=== PATIENT | female | born 1990 | race Caucasian/White ===

== ENCOUNTER → 2016-11-03 13:16 | Outpatient (CLI) | payer BC | END | disposition home or self-care (01) | LOC: D.MRI 13:16 | DX: M54.5 Low back pain (principal); G89.29 Other chronic pain ==

== ENCOUNTER → 2016-11-17 10:28 | Outpatient (CLI) | payer BC ==
[2016-11-17 14:22] LABS: HCG URINE NEGATIVE (NEGATIVE)
== END | disposition home or self-care (01) ==
LOC: D.RAD 10:28
PROVIDERS: Neurological Surgery
DX: M54.5 Low back pain (principal); M43.17 Spondylolisthesis, lumbosacral region

== ENCOUNTER 2017-03-23 18:15 | Emergency (ER) | payer BC | END 2017-03-23 21:55 | disposition home or self-care (01) | LOC: D.ER 18:15 | DX: M54.5 Low back pain (principal); V43.62XA Car passenger injured in collision with other type car in traffic accident, initial encounter; Y93.89 Activity, other specified; Y92.410 Unspecified street and highway as the place of occurrence of the external cause; E11.9 Type 2 diabetes mellitus without complications ==

== ENCOUNTER 2017-10-31 16:38 | Emergency (ER) | payer MEDICAID | END 2017-10-31 18:20 | disposition home or self-care (01) | LOC: D.ER 16:38 | DX: M54.5 Low back pain (principal); S39.012A Strain of muscle, fascia and tendon of lower back, initial encounter; X58.XXXA Exposure to other specified factors, initial encounter; Y93.89 Activity, other specified; Y92.89 Other specified places as the place of occurrence of the external cause; E11.9 Type 2 diabetes mellitus without complications ==

== ENCOUNTER 2018-09-14 05:46 | Day surgery (SDC) | payer MEDICAID ==
[~2018-09-14] VITALS: Ht 157.5 cm; Wt 143.2 kg
[2018-09-14 06:05] LABS: HEMATOCRIT 40.7 % (36.0-48.0); HEMOGLOBIN 13.6 g/dL (12-16); MCH 28.5 pg (26.0-34.0); MCHC 33.4 g/dL (31.0-37.0); MCV 85.1 fL (80.0-100.0); MEAN PLATELET VOLUME 9.1 fL (7.4-10.4); RBC 4.78 10x6/uL (4.00-5.40); RDW 13.5 % (11.5-14.5); WBC 12.8 10x3/uL (4.8-10.8)
[2018-09-14 06:13] LABS: CALC OSMOLALITY 280 mosm/kg (275-300); CALCIUM 8.4 mg/dL (8.5-10.1); CARBON DIOXIDE 27.1 mmol/L (21.0-32.0); CHLORIDE - SERUM 103 mmol/L (98-107); CREATININE - SERUM 0.8 mg/dL (0.6-1.3); GLUCOSE 102 mg/dL (74-106); POTASSIUM - SERUM 3.5 mmol/L (3.5-5.1); SODIUM 140 mmol/L (136-145); UREA NITROGEN 17 mg/dL (7-18); eGFR NON AFRICAN AMERICAN 90 mL/min (90-120)
[2018-09-14] MEDS ORDERED: HYDROCHLOROTHIA25 MG PO (06:22)
[2018-09-14] MEDS ORDERED: METOPROLOL TART50 MG PO (06:22)
[2018-09-14] MEDS ORDERED: BUSPAR10 MG PO (06:23)
[2018-09-14] MEDS ORDERED: BUPROPION XL300 MG PO (06:23)
[2018-09-14] MEDS ORDERED: MOBIC7.5 MG PO (06:23)
[2018-09-14] MEDS ORDERED: TYLENOL #4 W/CO1 TAB PO (06:24)
[2018-09-14] MEDS ORDERED: BACLOFEN20 M1 PO (06:24)
[2018-09-14] MEDS ORDERED: STRATTERA40 MG PO (06:25)
[2018-09-14 06:31] VITALS: BP 143/86; Ht 157.5 cm; Wt 143.2 kg
[2018-09-14 06:35] LABS: HCG URINE NEGATIVE (NEGATIVE)
--- NOTE | 2018-09-14 08:37 | NUR ---
DC INSTRUCTIONS GIVEN TO PT. STATES UNDERSTANDING. DC'D IV CATH FULLY INTACT
--- NOTE | 2018-09-14 09:11 | NUR ---
PT REQUESTED TO AMBULATE FROM UNIT. I WALKED W/ PT FROM HER ROOM TO THE [facility] WHERE HER BOYFRIEND WAS WAITING. PT LEFT UNIT AT 0908
--- NOTE | 2018-09-14 14:22 | OP ---
PATIENT NAME: NAMESAMARIA MEDICAL RECORD: [id number] :90 LOCATION:[facility] ADMISSION DATE: SURGEON: AVILA TOSCANO DO DATE OF OPERATION: 09/14/2018 PROCEDURE: EGD with biopsies. INDICATIONS FOR PROCEDURE: GERD, abdominal pain in the epigastric region, and diarrhea. SCOPE: Olympus video gastroscope. MEDICATIONS: Propofol 300 mg IV per anesthesia. ESTIMATED BLOOD LOSS: Minimal. COMPLICATIONS: None. FINDINGS: Informed consent was given. The patient was made comfortable with the above medication. After reaching an adequate level of sedation by slow IV push, the patient was placed on her left side. The endoscope was advanced under direct visualization through the mouth to the third portion of the duodenum. The entire esophagus appeared normal. At the GE junction, there was evidence of LA class A reflux-induced esophagitis. The endoscope was advanced beyond the GE junction into the stomach and retroflexed to view the cardia and fundus, which appeared relatively normal. Throughout the fundus, body of the stomach, and antrum and prepyloric regions, there were patchy areas of erythema and granularity consistent with possible gastritis. Cold forceps, biopsies were taken randomly to submit for histopathology and to rule out the presence of H. pylori. The endoscope was advanced beyond the pylorus into the duodenum. The duodenal bulb and second portion of the duodenum appeared normal. In the third portion of the duodenum, there were some erythema and granularity and a small ulceration present. Cold forceps, biopsies were taken specifically from this side as well as randomly throughout the bulb and second portion of the duodenum. The endoscope was withdrawn from the patient. The patient tolerated the procedure well and there were no complications. IMPRESSION: 1. LA class A reflux-induced esophagitis. 2. Gastritis. 3. Duodenitis. 4. Single, superficial, small duodenal ulcer. PLAN AND RECOMMENDATIONS: 1. Discharge home when recovery parameters are met. 2. Follow up biopsy specimen results. 3. GERD diet and reflux precautions. 4. Prescription for omeprazole 40 mg daily times 60 days will be given. 5. Trial of cholestyramine 4 grams b.i.d. for suspected bile salt induced diarrhea will be given. 6. Follow up in GI clinic in 2-3 weeks for further plans and recommendations based on results of biopsies and results of medication trials. TRANSINT:[id number] Voice Confirmation ID: [id number] DOCUMENT ID: [id number] OPERATIVE REPORT [id number] NAME,SAMARIA PRANAY TOSCANO,AVILA Reed DO at 1422 CC: [id number] DICTATION DATE: 09/14/18 08 [employer] SERVICER: 09/14/18 0932 [facility] 09/14/18 [facility] [address] [id number]
== END 2018-09-14 09:08 | disposition home or self-care (01) ==
LOC: D.OPS 05:46
PROVIDERS: Anesthesiology; ATTEND Internal Medicine Gastroenterology
DX: K21.0 Gastro-esophageal reflux disease with esophagitis (principal); K29.70 Gastritis, unspecified, without bleeding; K29.80 Duodenitis without bleeding; K26.9 Duodenal ulcer, unspecified as acute or chronic, without hemorrhage or perforation; Z01.812 Encounter for preprocedural laboratory examination

== ENCOUNTER 2018-10-10 05:44 | Day surgery (SDC) | payer OTHER ==
[~2018-10-10] VITALS: Ht 157.5 cm; Wt 141.4 kg
[~2018-10-10 05:44] MED LIST: BACLOFEN20 M1 PO; BUPROPION XL300 MG PO; BUSPAR10 MG PO; HYDROCHLOROTHIA25 MG PO; METOPROLOL TART50 MG PO; MOBIC7.5 MG PO; STRATTERA40 MG PO; TYLENOL #4 W/CO1 TAB PO
[2018-10-10 06:13] LABS: HEMATOCRIT 39.9 % (36.0-48.0); HEMOGLOBIN 13.6 g/dL (12-16); MCH 28.8 pg (26.0-34.0); MCHC 34.1 g/dL (31.0-37.0); MCV 84.4 fL (80.0-100.0); MEAN PLATELET VOLUME 9.1 fL (7.4-10.4); RBC 4.73 10x6/uL (4.00-5.40); RDW 13.3 % (11.5-14.5); WBC 10.1 10x3/uL (4.8-10.8)
[2018-10-10 06:20] LABS: CALC OSMOLALITY 272 mosm/kg (275-300); CALCIUM 8.4 mg/dL (8.5-10.1); CARBON DIOXIDE 30.7 mmol/L (21.0-32.0); CHLORIDE - SERUM 101 mmol/L (98-107); CREATININE - SERUM 0.8 mg/dL (0.6-1.3); GLUCOSE 92 mg/dL (74-106); SODIUM 137 mmol/L (136-145); UREA NITROGEN 11 mg/dL (7-18); eGFR NON AFRICAN AMERICAN 90 mL/min (90-120)
[2018-10-10 08:14] VITALS: BP 142/76; BMI 57.0
--- NOTE | 2018-10-10 16:44 | OP ---
PATIENT NAME: NAMESAMARIA MEDICAL RECORD: [id number] :90 LOCATION:[facility] ADMISSION DATE: SURGEON: AVILA TOSCANO DO DATE OF OPERATION: 10/10/2018 PROCEDURE: Colonoscopy with biopsies. INDICATIONS FOR PROCEDURE: Diarrhea. SCOPE: Olympus video pediatric colonoscope. MEDICATIONS: Propofol 460 mg IV per anesthesia. WITHDRAWAL TIME: 10 minutes. ESTIMATED BLOOD LOSS: Minimal. COMPLICATIONS: None. FINDINGS: Informed consent was given. The patient was made comfortable with the above medication. After reaching an adequate level of sedation by slow IV push, the patient was placed on her left side. A digital rectal examination was performed and was normal. The endoscope was advanced under direct visualization through the rectum to the cecum and the terminal ileum. The endoscope was slowly withdrawn and mucosa was carefully examined. The prep quality was good. Retroflexion was performed in the rectum. The entire examination was normal including the terminal ileum. Cold forceps biopsies were taken randomly from the terminal ileum as well as each segment of the colon. There were no polyps, diverticula, or hemorrhoids visualized on today's examination. The endoscope was withdrawn from the patient. The patient tolerated the procedure well and there were no complications. IMPRESSION: Normal colonoscopy to terminal ileum. PLAN AND RECOMMENDATIONS: 1. Discharge home when recovery parameters are met. 2. Follow up biopsy specimen results. 3. High fiber diet. 4. Continue current medications including as needed dicyclomine. 5. Continue cholestyramine for diarrhea. 6. Consider gastric emptying scan if continued abdominal pain. The patient has had her gallbladder removed, so an ultrasound will not be of any value. TRANSINT:[id number] Voice Confirmation ID: [id number] DOCUMENT ID: [id number] AVILA TOSCANO DO at 1644 CC: [id number] DICTATION DATE: 10/10/18 0858 FIBROUS WALLBOARD INSPECTOR: 10/10/18 1233 [facility] 10/10/[address] [id number]
[2018-10-10 20:53] VITALS: Ht 157.5 cm; Wt 141.4 kg
[2018-10-11] MEDS ORDERED: ZOFRAN ODT4 MG/UDTAB PO (02:42)
== END 2018-10-10 09:55 | disposition home or self-care (01) ==
LOC: D.OPS 05:44
PROVIDERS: Anesthesiology; ATTEND Internal Medicine Gastroenterology
DX: R19.7 Diarrhea, unspecified (principal); Z01.812 Encounter for preprocedural laboratory examination

== ENCOUNTER 2018-10-10 20:45 | Emergency (ER) | payer OTHER ==
[~2018-10-10] VITALS: Ht 157.5 cm; Wt 138.2 kg
[2018-10-10 20:53] VITALS: Ht 157.5 cm; Wt 138.2 kg
[2018-10-10 22:05] LABS: BASOPHILS 0.2 % (0-2); EOSINOPHILS 1.9 % (0-7); HEMATOCRIT 39.8 % (36.0-48.0); HEMOGLOBIN 13.7 g/dL (12-16); IMMATURE GRANULOCYTES 0.4 % (0-5); LYMPHOCYTES 24.7 % (15-50); MCH 29.1 pg (26.0-34.0); MCHC 34.4 g/dL (31.0-37.0); MCV 84.7 fL (80.0-100.0); MEAN PLATELET VOLUME 9.1 fL (7.4-10.4); NEUTROPHILS 66.8 % (40-80); PLATELET COUNT 320 10x3/uL (130-400); RDW 13.3 % (11.5-14.5); WBC 9.9 10x3/uL (4.8-10.8)
[2018-10-10 22:21] LABS: HCG URINE NEGATIVE (NEGATIVE)
[2018-10-10 22:21] LABS: ALBUMIN 3.6 g/dL (3.4-5.0); ALKALINE PHOSPHATASE 91 U/L (46-116); ALT (SGPT) 231 U/L (10-68); BILIRUBIN - TOTAL 1.01 mg/dL (0.2-1.3); CALC OSMOLALITY 279 mosm/kg (275-300); CALCIUM 8.8 mg/dL (8.5-10.1); CARBON DIOXIDE 34.2 mmol/L (21.0-32.0); CHLORIDE - SERUM 102 mmol/L (98-107); CREATININE - SERUM 0.8 mg/dL (0.6-1.3); GLUCOSE 98 mg/dL (74-106); POTASSIUM - SERUM 3.2 mmol/L (3.5-5.1); PROTEIN - SERUM 7.7 g/dL (6.4-8.2); SODIUM 141 mmol/L (136-145); UREA NITROGEN 10 mg/dL (7-18); eGFR NON AFRICAN AMERICAN 90 mL/min (90-120)
[2018-10-10 22:25] LABS: AMYLASE - SERUM 32 U/L (25-115); LIPASE 104 U/L (73-393); TROPONIN-I < 0.017 ng/mL (0.000-0.060)
[2018-10-10 22:28] LABS: APPEARANCE HAZY (CLEAR); BILIRUBIN NEGATIVE (NEGATIVE); COLOR YELLOW (YELLOW); GLUCOSE NEGATIVE (NEGATIVE); KETONE NEGATIVE (NEGATIVE); NITRITE NEGATIVE (NEGATIVE); PROTEIN NEGATIVE (NEGATIVE); SPECIFIC GRAVITY 1.015 (1.005-1.020); UROBILINOGEN NORMAL (NORMAL); WHITE CELLS - URINE OCC /hpf (0-5)
[2018-10-10 22:29] LABS: EPITHELIAL CELLS 0-5 /hpf (0-5); RED CELLS - URINE 25-50 /hpf (0-5)
[2018-10-11] MEDS ORDERED: ZOFRAN ODT4 MG/UDTAB PO (02:42)
[2018-10-11 03:30] VITALS: BP 132/74
== END 2018-10-11 04:19 | disposition home or self-care (01) ==
LOC: D.ER 20:45
PROVIDERS: Family Medicine
DX: R10.32 Left lower quadrant pain (principal); E87.6 Hypokalemia; R31.29 Other microscopic hematuria; G89.18 Other acute postprocedural pain

== ENCOUNTER 2019-05-08 23:27 | Emergency (ER) | payer MEDICAID ==
[~2019-05-08] VITALS: Ht 157.5 cm; Wt 145.5 kg
[~2019-05-08 23:27] MED LIST changes: +ZOFRAN ODT4 MG/UDTAB PO
[2019-05-08 23:32] VITALS: Ht 157.5 cm; Wt 145.5 kg
[2019-05-09 00:25] LABS: CALC OSMOLALITY 276 mosm/kg (275-300); CALCIUM 8.6 mg/dL (8.5-10.1); CARBON DIOXIDE 24.4 mmol/L (21.0-32.0); CHLORIDE - SERUM 104 mmol/L (98-107); CREATININE - SERUM 0.7 mg/dL (0.6-1.3); GLUCOSE 106 mg/dL (74-106); POTASSIUM - SERUM 4.8 mmol/L (3.5-5.1); SODIUM 138 mmol/L (136-145); UREA NITROGEN 14 mg/dL (7-18); eGFR NON AFRICAN AMERICAN > 90 mL/min (90-120)
[2019-05-09 00:31] LABS: ALBUMIN 3.5 g/dL (3.4-5.0); ALKALINE PHOSPHATASE 77 U/L (46-116); ALT (SGPT) 143 U/L (10-68); BILIRUBIN - TOTAL 0.69 mg/dL (0.2-1.3); LIPASE 75 U/L (73-393); PROTEIN - SERUM 7.3 g/dL (6.4-8.2)
[2019-05-09 00:33] LABS: HCG URINE NEGATIVE (NEGATIVE)
[2019-05-09 00:38] LABS: UDS - AMPHET NEGATIVE QUAL (NEGATIVE); UDS - BARB NEGATIVE QUAL (NEGATIVE); UDS - BENZO NEGATIVE QUAL (NEGATIVE); UDS - COCAINE NEGATIVE QUAL (NEGATIVE); UDS - OPIATE POSITIVE QUAL (NEGATIVE); UDS - PCP NEGATIVE QUAL (NEGATIVE); UDS - THC NEGATIVE QUAL (NEGATIVE)
[2019-05-09 00:41] LABS: APPEARANCE CLEAR (CLEAR); BILIRUBIN NEGATIVE (NEGATIVE); COLOR YELLOW (YELLOW); GLUCOSE NEGATIVE (NEGATIVE); KETONE NEGATIVE (NEGATIVE); NITRITE NEGATIVE (NEGATIVE); PROTEIN 1+ mg/dL (NEGATIVE); UROBILINOGEN NORMAL (NORMAL)
[2019-05-09 00:42] LABS: BACTERIA FEW /hpf (NEGATIVE); EPITHELIAL CELLS 0-5 /hpf (0-5); MUCUS <1+ /lpf (NONE SEEN); RED CELLS - URINE 0-5 /hpf (0-5); WHITE CELLS - URINE 0-5 /hpf (NEGATIVE)
[2019-05-09 03:22] LABS: BASOPHILS 0.1 % (0-2); EOSINOPHILS 0.4 % (0-7); HEMATOCRIT 40.5 % (36.0-48.0); HEMOGLOBIN 13.4 g/dL (12-16); IMMATURE GRANULOCYTES 0.7 % (0-5); LYMPHOCYTES 13.6 % (15-50); MCH 28.3 pg (26.0-34.0); MCHC 33.1 g/dL (31.0-37.0); MCV 85.6 fL (80.0-100.0); MEAN PLATELET VOLUME 8.8 fL (7.4-10.4); MONOCYTES 3.5 % (2-11); NEUTROPHILS 81.7 % (40-80); PLATELET COUNT 303 10x3/uL (130-400); RBC 4.73 10x6/uL (4.00-5.40); RDW 12.8 % (11.5-14.5); WBC 14.4 10x3/uL (4.8-10.8)
[2019-05-09] MEDS ORDERED: LOMOTIL 2.5-0.1 EAC1 PO (03:51)
[2019-05-09] MEDS ORDERED: ZOFRAN ODT4 MG/UDTAB PO (03:51)
[2019-05-09 04:25] VITALS: BP 122/83
== END 2019-05-09 04:25 | disposition home or self-care (01) ==
LOC: D.ER 23:27
PROVIDERS: Family Medicine
DX: A08.4 Viral intestinal infection, unspecified (principal); I10 Essential (primary) hypertension

== ENCOUNTER 2020-10-29 15:30 | Outpatient (CLI) | payer OTHER ==
[2019-05-08 23:32] VITALS: BMI 58.7
[~2020-10-29 15:30] MED LIST changes: +LOMOTIL 2.5-0.1 EAC1 PO
== END 2020-10-29 23:59 | disposition home or self-care (01) ==
LOC: D.MAMMO 15:30
PROVIDERS: ATTEND Student in an Organized Health Care Education/Training Program
DX: N63.12 Unspecified lump in the right breast, upper inner quadrant (principal); N63.21 Unspecified lump in the left breast, upper outer quadrant